=== PATIENT | male | born 1980 | race American Indian/Alaskan Native ===

== ENCOUNTER 2021-11-03 20:15 | Emergency (ER) | payer SELFPAY ==
[2021-11-03 20:38] VITALS: BP 140/90
== END 2021-11-04 02:58 | disposition left against medical advice (07) ==
LOC: ED 20:15
DX: T50.901A Poisoning by unspecified drugs, medicaments and biological substances, accidental (unintentional), initial encounter (principal); Z53.21 Procedure and treatment not carried out due to patient leaving prior to being seen by health care provider; Y92.89 Other specified places as the place of occurrence of the external cause

== ENCOUNTER 2021-11-05 09:53 | Emergency (ER) | payer SELFPAY ==
[2021-11-05 11:55] LABS: Basophils % (Auto) 0.6 % (0.0-1.8); Eosinophils # (Auto) 0.4 K/mm3 (0.0-0.4); Eosinophils % (Auto) 6.4 % (0.0-4.3); Hematocrit 44.7 % (35.5-45.6); Hemoglobin 15.2 gm/dl (11.8-15.2); Lymphocytes % (Auto) 34.4 % (13.4-35.0); Mean Corpuscular HGB Conc 34 % (32-34); Mean Corpuscular Volume 85 fl (84-94); Monocytes # (Auto) 0.7 K/mm3 (0.0-0.8); Monocytes % (Auto) 12.5 % (0.0-7.3); Platelet Count 343 K/mm3 (140-440); Red Blood Count 5.28 M/mm3 (3.65-5.03); Red Cell Distribution Width 13.7 % (13.2-15.2)
[2021-11-05 11:57] LABS: Alanine Aminotransferase 29 units/L (7-56); Albumin 4.3 g/dL (3.9-5); BUN/Creatinine Ratio 17; Blood Urea Nitrogen 17 mg/dL (9-20); Calcium 9.3 mg/dL (8.4-10.2); Hemolysis Index 10
[2021-11-05] MEDS ORDERED: SODIUM CHLORIDE 0.9% 1000 ML 1,000 ML IV ONE (14:35)
[2021-11-05] MEDS ORDERED: KETOROLAC 30 MG/1 ML INJ IV ONE (14:35)
[2021-11-05] MEDS ORDERED: LORazepam 1 MG TAB PO ONE (14:49)
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
[2021-11-05 16:40] VITALS: BP 153/96
== END 2021-11-05 16:38 | disposition home or self-care (01) ==
LOC: ED 09:53
DX: T65.891A Toxic effect of other specified substances, accidental (unintentional), initial encounter (principal); K29.70 Gastritis, unspecified, without bleeding; Y92.89 Other specified places as the place of occurrence of the external cause; Z88.0 Allergy status to penicillin; F17.200 Nicotine dependence, unspecified, uncomplicated; F12.90 Cannabis use, unspecified, uncomplicated; F10.20 Alcohol dependence, uncomplicated
CPT/HCPCS: 36415; 80053; 83690; 85025; 96361; 96374; 99283; J1885; J7030; 80320; G0480